=== PATIENT | male | born 2000 | race African-American/Black ===

== ENCOUNTER → 2019-10-17 | Outpatient (CLI) | payer BC, OTHER ==
--- NOTE | 2019-10-17 15:17 | RAD ---
EXAM: 1. KNEE RIGHT 2V, 2. KNEE STANDING BILAT AP. HISTORY: Right knee pain. COMPARISON: None. FINDINGS: There are changes of right anterior cruciate ligament reconstruction with a patellar tendon graft. Some residual soft tissue edema is suspected about the patellar tendon. No fractures are identified. Joint spaces and alignment are maintained. There is only trace joint fluid. On the left, no fractures are identified. Joint spaces and alignment are maintained. A benign-appearing bone island projects within the left distal femoral metadiaphysis. IMPRESSION: 1. Correlate for soft tissue tissue swelling along the patellar tendon status post patellar tendon graft harvesting and anterior cruciate ligament reconstruction. Electronically signed by: Henrry Castro MD (10/17/2019 3:14 PM) [id number]
== END ==
LOC: DXRAD 14:37
PROVIDERS: ATTEND Orthopaedic Surgery
DX: M25.462 Effusion, left knee (principal); M25.461 Effusion, right knee; Z98.890 Other specified postprocedural states
CPT/HCPCS: 73560; 73565